=== PATIENT | female | born 1980 | race Caucasian/White ===

== ENCOUNTER 2020-07-27 19:50 | Emergency (ER) | payer OTHER, MEDICAID ==
[~2020-07-27] VITALS: Ht 157.5 cm; Wt 104.3 kg
[~2020-07-27 19:50] MED LIST: ACETAMINOPHEN-1 EAC1 PO; AFRIN15 ML NS; AMBIEN CR12.5 MG PO; AMOXICILLIN 50500 MG PO; ASPIR 8181 M1 PO; BUTALB-APAP-CA1 EACH PO; CLONAZEPAM 1 MG1 M1 PO; DELTASONE20 MG PO; HYDROCODONE-AP1 EAC6 PO; IBUPROFEN 800800 M1 PO; KLONOPIN0.5 MG PO; LANTUS100 UNIT/M SUBQ; LEXAPRO 10 MG T10 M1 PO; LIPITOR 20 MG T20 M1 PO; MEDROLDOSEPACK PO; METFORMIN HCL500 MG PO; NASACORT10.8 ML NS; NEURONTIN 300300 M1 PO; NEURONTIN300 MG PO; NORCO 5-325 TA1 EACH PO; PAXIL10 MG; PENICILLIN V P500 MG PO; PROAIR HFA8.5 GM INH; PROMETHAZINE D480 ML PO; SEROQUEL 50 MG50 MG PO; TOPROL XL25 MG PO; ZOFRAN ODT4 MG DISSOLVE; ZPAK PO
[2020-07-27] MEDS ORDERED: ENOXAPARIN80 MG/0.8 SUBQ (20:00)
[2020-07-27] MEDS ORDERED: WARFARIN SODIUM1 GM PO (20:01)
[2020-07-27] MEDS ORDERED: WARFARIN SODIU7.5 MG PO (20:01)
[2020-07-27] MEDS ORDERED: CYMBALTA60 MG PO (20:01)
[2020-07-27] MEDS ORDERED: PERCOCET 10-321 EAC1 PO (20:02)
[2020-07-27] MEDS ORDERED: OXYCONTIN20 M1 PO (20:03)
[2020-07-27 23:31] LABS: ABSOLUTE EOSINOPHILS 0.2 thou/uL (0.0-0.7); ABSOLUTE LYMPHOCYTES 3.5 thou/uL (0.8-5.3); ABSOLUTE MONOCYTES 0.6 thou/uL (0.0-1.2); ABSOLUTE NEUTROPHILS 5.8 thou/uL (1.6-8.1); BASOPHILS 0.2 %; EOSINOPHILS 1.7 %; HEMATOCRIT 39.8 % (37.0-47.0); HEMOGLOBIN 13.4 gm/dL (12.0-15.0); LYMPHOCYTES 34.7 %; MCH 28.3 pg (26.0-34.0); MCHC 33.6 g/dL (28.0-37.0); MCV 84.3 fL (80.0-100.0); MONOCYTES 6.1 %; MPV 7.2 fl. (7.2-11.1); NUCLEATED RBCS 0 /100WBC; PLATELET COUNT* 281 thou/uL (150-400); POLYS 57.3 %; RBC 4.72 mil/uL (4.20-5.00); RDW-CV 15.3 % (10.5-14.5); WBC 10.1 thou/uL (4.0-11.0)
[2020-07-27 23:33] LABS: CALCIUM 8.8 mg/dL (8.5-10.1); INR 1.6; PROTIME 16.2 Seconds (9.20-11.50)
[2020-07-27 23:37] LABS: ALBUMIN 3.7 g/dL (3.4-5.0); TOTAL BILIRUBIN 0.4 mg/dL (<0.1-1.0); TOTAL PROTEIN 7.4 g/dL (6.4-8.2)
[2020-07-28 00:14] LABS: URINE BILIRUBIN NEGATIVE (Negative); URINE BLOOD 3+ (Negative); URINE CLARITY CLEAR; URINE COLOR YELLOW; URINE GLUCOSE-RANDOM 2+ (Negative); URINE KETONES NEGATIVE (Negative); URINE LEUKOCYTES-REFLEX NEGATIVE (Negative); URINE NITRITE-REFLEX NEGATIVE (Negative); URINE PROTEIN NEGATIVE (Negative); URINE SPECIFIC GRAVITY 1.025 (1.005-1.030); URINE UROBILINOGEN 0.2 E.U./dl (0.2-1.0)
[2020-07-28 00:23] LABS: CASTS None Seen /LPF (None Seen); SQUAMOUS 0-3 Few /LPF (0-3); URINE RBC >20 Many /HPF (0-2); URINE WBC-REFLEX 0-5 Rare /HPF (0-5)
[2020-07-28 00:24] LABS: BACTERIA-REFLEX 1-9 Few /HPF (None Seen); CRYSTALS None Seen /LPF (None Seen)
[2020-07-28] MEDS ORDERED: BENTYL 20 MG TA20 M1 PO (00:36)
[2020-07-28 00:50] VITALS: BP 122/72
--- NOTE | 2020-07-28 15:54 | EKG ---
[place] [address] ELECTROCARDIOGRAM REPORT Name: MARIEL VALENZUELAISON Noreen Room: [facility]#: [id number] Admission: 07/27/20 Attend Phys: Discharge: 07/28/20 Date of : 78 Date of Service: 07/27/20 234 Report #: [id number] THIS REPORT FOR: //name// [facility] ED Test Date: 2020-07-27 Test Time: 23:41:36 Pat Name: SHUN VALENZUELA Department: Room: Gender: [employer] Assistant [employer] Coach: [place] : 1980 Requested By: Terrence Hager Order Number: [id number] MD: Freddy Zarco Measurements Intervals [place] Rate: 113 P: 38 MO: 139 QRS: 44 QRSD: 76 T: 4 QT: 344 QTc: 472 Interpretive Statements Sinus tachycardia Probable left atrial enlargement Compared to ECG 02/26/2009 10:36:03 T-wave abnormality no longer present Possible ischemia no longer present Electronically Signed On 07-28-2020 15:54:24 CDT by Freddy Zarco [email or web address] <ELECTRONICALLY SIGNED> By: Freddy Zarco MD, FACC 07/28/20 1554 [id number] Freddy Zarco MD, FAC /EPI
== END 2020-07-28 00:50 | disposition home or self-care (01) ==
LOC: M.ERS 19:50
PROVIDERS: Emergency Medicine Emergency Medical Services
DX: F11.20 Opioid dependence, uncomplicated (principal); F17.210 Nicotine dependence, cigarettes, uncomplicated; E11.9 Type 2 diabetes mellitus without complications; Z88.2 Allergy status to sulfonamides; Z88.6 Allergy status to analgesic agent; Z88.8 Allergy status to other drugs, medicaments and biological substances; Z79.01 Long term (current) use of anticoagulants; Z79.899 Other long term (current) drug therapy; Z79.82 Long term (current) use of aspirin; Z98.890 Other specified postprocedural states; Z86.73 Personal history of transient ischemic attack (TIA), and cerebral infarction without residual deficits; Z87.01 Personal history of pneumonia (recurrent)